=== PATIENT | female | born 1980 | race Caucasian/White ===

== ENCOUNTER 2020-03-30 17:01 | Emergency (ER) | payer OTHER ==
[2020-03-30 17:33] VITALS: BP 121/76
--- NOTE | 2020-03-30 17:53 | Emergency Department Report ---
ED Back Pain/Injury HPI - General Chief Complaint: Back Pain/Injury Stated Complaint: BACK PAIN Time Seen by Provider: 03/30/20 17:47 Source: patient Limitations: No Limitations - History of Present Illness Initial Comments: 39-year-old female presents emerged department complaining of a 4-day history of continue low back pain which occurred while she was in the freezer taking a box down and trying to walk to a tight space. While doing so she had to twist towards the right causing the pain to last night across her lower back which is continue to nag in a a aching spastic-like fashion. She reports no loss of bowel bladder, no saddle paresthesia, no numbness or tingling, no urinary symptoms. MD Complaint: back pain Similar Symptoms Previously: No Place: work Radiation: none Severity: mild Quality: dull, aching Consistency: constant (`) - Related Data Previous Rx's Medication Instructions Recorded Last Taken Type Ketorolac [Toradol] 10 mg PO Q6H PRN #15 tablet 03/30/20 Unknown Rx methOCARBAMOL [Robaxin TAB] 750 mg PO Q8H PRN #14 tablet 03/30/20 Unknown Rx Allergies Allergy/AdvReac Type Severity Reaction Status Date / Time No Known Allergies Allergy Unverified 03/30/20 17:33 ED Review of Systems ROS: Stated complaint: BACK PAIN Other details as noted in HPI Comment: All other systems reviewed and negative ED Past Medical Hx - Past Medical History Previous Medical History?: No - Social History Smoking Status: Never Smoker Substance Use Type: None - Medications Home Medications: Home Medications Medication Instructions Recorded Confirmed Last Taken Type Ketorolac [Toradol] 10 mg PO Q6H PRN #15 tablet 03/30/20 Unknown Rx methOCARBAMOL [Robaxin TAB] 750 mg PO Q8H PRN #14 tablet 03/30/20 Unknown Rx ED Physical Exam - General Limitations: No Limitations General appearance: alert, in no apparent distress - Head Head exam: Present: atraumatic, normocephalic - Eye Eye exam: Present: normal appearance, PERRL, EOMI Pupils: Present: normal accommodation - ENT ENT exam: Present: mucous membranes moist - Neck Neck exam: Present: normal inspection - Respiratory Respiratory exam: Present: normal lung sounds bilaterally. Absent: respiratory distress - Cardiovascular Cardiovascular Exam: Present: regular rate, normal rhythm. Absent: systolic murmur, diastolic murmur, rubs, gallop - GI/Abdominal GI/Abdominal exam: Present: soft, normal bowel sounds - Extremities Exam Extremities exam: Present: normal inspection - Back Exam Back exam: Present: normal inspection, muscle spasm, paraspinal tenderness. Absent: CVA tenderness (R), CVA tenderness (L) - Expanded Back Exam Expanded Back exam: Sciatic Notch Tenderness: Left, Negative Straight Leg Raising: Right, Left (Pain with Juarez's test on the right side) - Neurological Exam Neurological exam: Present: alert, oriented X3, CN II-XII intact, reflexes normal, other (Gait is coordinated) - Psychiatric Psychiatric exam: Present: normal affect, normal mood - Skin Skin exam: Present: warm, dry, intact, normal color. Absent: rash ED Course Vital Signs 03/30/20 17:28 Temperature 98.1 F Pulse Rate 72 Respiratory 18 Rate Blood Pressure 121/76 O2 Sat by Pulse 100 Oximetry ED Medical Decision Making - Medical Decision Making Pt presents the emergency department complaining of back pain most consistent with lumbago back Pain Most Consistent with Strain/Contusion. Differential Diagnosis Includes Lumbar Go Versus Musculoskeletal Spasm, Strain Versus Sciatica. No Back Pain Red Flags on History or Physical. Presentation Not Consistent with Malignancy, Fracture, Cauda Equina, Abdominal Aortic Aneurysm, Viscus Perforation, Pulmonary Embolism, Renal Colic, Pyelonephritis. Patient reports no B symptoms, trauma trauma, incontinence, saddle anesthesia, distal weakness, urinary symptoms and is a febrile. Critical care attestation.: If time is entered above; I have spent that time in minutes in the direct care of this critically ill patient, excluding procedure time. ED Disposition Clinical Impression: Lumbago Disposition: DC-01 TO HOME OR SELFCARE Is pt being admited?: No Does the pt Need Aspirin: No Condition: Stable Instructions: Back Injury Prevention, [id number], Acute Back Pain, Adult, Radicular Pain, Back Injury Prevention Prescriptions: methOCARBAMOL [Robaxin TAB] 750 mg PO Q8H PRN #14 tablet PRN Reason: Pain, Moderate (4-6) Ketorolac [Toradol] 10 mg PO Q6H PRN #15 tablet PRN Reason: Pain Referrals: PADDY MUÑOZ MD [Staff Physician] - 3-5 Days Forms: Work/School Release Form
== END 2020-03-30 18:17 | disposition home or self-care (01) ==
LOC: ED 17:01
DX: M54.5 Low back pain (principal); Z79.899 Other long term (current) drug therapy
CPT/HCPCS: 99281